=== PATIENT | female | born 1990 | race African-American/Black ===

== ENCOUNTER 2016-09-15 20:23 | Emergency (ER) | payer MEDICAID ==
[2016-09-15 20:42] VITALS: BP 129/76
[2016-09-15] MEDS ORDERED: OXYCODONE-ACETAMINOPHEN 5-325 MG TABLET PO ONE (20:42)
[2016-09-15] MEDS ORDERED: HYDROCODONE/ACETAMINOPHEN 5-325 MG 6 TAB/DSPK PO PRN (20:42)
--- NOTE | 2016-09-15 20:42 | ER Document Report ---
ED Oral Problem - General Stated Complaint: TOOTH PAIN Time Seen by Provider: 09/15/16 20:38 Mode of Arrival: Ambulatory Information source: Patient TRAVEL OUTSIDE OF THE U.S. IN LAST 30 DAYS: No - HPI Patient complains to provider of: Toothache Onset: This morning Onset: Sudden Quality of pain: Achy Severity: Moderate Pain Level: 4 Context: Fractured tooth Associated symptoms: Dental decay Worsened by: Cold Relieved by: Nothing Recently seen / treated by doctor/dentist: No Notes: 25-year-old female presents to the emergency room complaining of dental pain that started earlier today, she reports a fractured tooth in the area of concern that another small piece broke off of a few days ago, and throughout the day today she has had worsening pain to this area, she denies any drainage, no fevers, she does not currently have a dentist - Related Data Allergies/Adverse Reactions: No Known Allergies Allergy (Verified 01/24/16 12:35) Past Medical History - General Information source: Patient - Social History Smoking Status: Current Every Day Smoker Family History: Reviewed & Not Pertinent Infectious Medical History: Denies: Hx HIV Past Surgical History: Reports: Hx Section, Hx Gynecologic Surgery - c- section - Immunizations Hx Diphtheria, Pertussis, Tetanus Vaccination: Yes Review of Systems - Review of Systems Constitutional: No symptoms reported EENT: See HPI Cardiovascular: No symptoms reported Respiratory: No symptoms reported Gastrointestinal: No symptoms reported Genitourinary: No symptoms reported Female Genitourinary: No symptoms reported Musculoskeletal: No symptoms reported Skin: No symptoms reported Hematologic/Lymphatic: No symptoms reported Neurological/Psychological: No symptoms reported -: Yes All other systems reviewed and negative Physical Exam - Vital signs Vitals: Temp Pulse Resp BP Pulse Ox 98.6 F 79 16 129/76 H 100 09/15/16 20:40 09/15/16 20:40 09/15/16 20:40 09/15/16 20:40 09/15/16 20:40 - Notes Notes: - General General appearance: Appears well, Alert In distress: None - HEENT Head: Normocephalic, Atraumatic Eyes: Normal Conjunctiva: Normal Extraocular movements intact: Yes Eyelashes: Normal Pupils: PERRL - Respiratory Respiratory status: No respiratory distress - Cardiovascular Rhythm: Regular - Abdominal Inspection: Normal - Back Back: Normal - Extremities General upper extremity: Normal inspection General lower extremity: Normal inspection - Neurological Neuro grossly intact: Yes Orientation: AAOx4 [place] Coma Scale Eye Opening: Spontaneous Marcelo Coma Scale Verbal: Oriented [place] Coma Scale Motor: Obeys Commands Marcelo Coma Scale Total: 15 - Psychological Associated symptoms: Normal affect, Normal mood - Skin Skin Temperature: Warm Skin Moisture: Dry Skin Color: Normal - HEENT Mouth/Lips: Caries Teeth diagram: 1 - fractured tooth with dental caries, pulp exposure Course - Re-evaluation Re-evalutation: 09/15/16 20:44 Patient with dental fracture and caries, slight erythema and swelling to surrounding gingiva, will be started on antibiotics and provided with pain medication as well as information for follow-up with dental clinics, advised to return if symptoms worsen, patient acknowledges understanding and agreement with this plan - Vital Signs Vital signs: Temp Pulse Resp BP Pulse Ox 98.6 F 79 16 129/76 H 100 09/15/16 20:40 09/15/16 20:40 09/15/16 20:40 09/15/16 20:40 09/15/16 20:40 Discharge - Discharge Clinical Impression: Dental caries, unspecified Condition: Stable Disposition: HOME, SELF-CARE Instructions: Dentist, Dental Infection or Abscess ([facility]) Additional Instructions: Follow up with your primary care provider and a dentist in one to 2 days. Return to the emergency room immediately if symptoms worsen or any additional concerns. Prescriptions: Oxycodone HCl/Acetaminophen [Percocet 5-325 mg Tablet] 1 - 2 tab PO ASDIR PRN # 15 tablet PRN Reason: Penicillin V Potassium [Penicillin Vk 500 mg Tablet] 500 mg PO TID #30 tablet
== END 2016-09-15 21:00 | disposition home or self-care (01) ==
LOC: ER 20:23
DX: K02.9 Dental caries, unspecified (principal); K08.89 Other specified disorders of teeth and supporting structures; F17.200 Nicotine dependence, unspecified, uncomplicated
CPT/HCPCS: 99282

== ENCOUNTER 2017-04-18 09:13 | Emergency (ER) | payer SELFPAY ==
[2017-04-18] MEDS ORDERED: IBUPROFEN 800 MG TABLET PO ONE (10:39)
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
[2017-04-18] MEDS ORDERED: TETRACAINE HCL 0.5% OPH SOLN 2 ML OS ONE (12:19)
[2017-04-18] MEDS ORDERED: TETRACAINE HCL 0.5% OPH SOLN 2 ML ONE (12:20)
--- NOTE | 2017-04-18 12:23 | RADIOLOGY REPORT (SQ) ---
EXAM DESCRIPTION: HAND RIGHT 3 VIEWS COMPLETED DATE/TIME: 04/18/2017 11:36 am REASON FOR STUDY: PAINFUL THUMB. COMPARISON: None. EXAM PARAMETERS: NUMBER OF VIEWS: Three views. TECHNIQUE: AP, lateral and oblique radiographic images acquired of the right hand. LIMITATIONS: None. FINDINGS: MINERALIZATION: Normal. BONES: No acute fracture or dislocation. No worrisome bone lesions. JOINTS: No effusions. SOFT TISSUES: No soft tissue swelling. No foreign body. OTHER: No other significant finding. IMPRESSION: NEGATIVE STUDY OF THE RIGHT HAND. NO RADIOGRAPHIC EVIDENCE OF ACUTE INJURY. TECHNICAL DOCUMENTATION: JOB ID: [id number] SC-69 2010 [employer]- All Rights Reserved
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
[2017-04-18] MEDS ORDERED: CEPHALEXIN 500 MG CAPSULE PO ONE (12:35)
[2017-04-18] MEDS ORDERED: HYDROCODONE/ACETAMINOPHEN 5-325 MG (6 TAB/ER DISP) PO PRN (12:35)
[2017-04-18 12:53] VITALS: BP 135/86
== END 2017-04-18 12:51 | disposition home or self-care (01) ==
LOC: ER 09:13
DX: S00.83XA Contusion of other part of head, initial encounter (principal); J01.90 Acute sinusitis, unspecified; K02.9 Dental caries, unspecified; R51 Headache; F17.210 Nicotine dependence, cigarettes, uncomplicated; Y04.2XXA Assault by strike against or bumped into by another person, initial encounter; Y92.009 Unspecified place in unspecified non-institutional (private) residence as the place of occurrence of the external cause
CPT/HCPCS: 70486; 99284; 99406

== ENCOUNTER 2018-03-27 16:20 | Emergency (ER) | payer OTHER ==
[2018-03-27] MEDS ORDERED: IBUPROFEN 800 MG TABLET PO ONE (16:41)
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
[2018-03-27 17:55] LABS: AMORPHOUS SEDIMENT,URINE TRACE /HPF; APPEARANCE,URINE CLOUDY; BILIRUBIN,URINE NEGATIVE (NEGATIVE); COLOR,URINE YELLOW; GLUCOSE, URINE NEGATIVE (NEGATIVE); KETONES,URINE NEGATIVE (NEGATIVE); LEUKOCYTE ESTERASE,URINE NEGATIVE (NEGATIVE); NITRITE,URINE NEGATIVE (NEGATIVE); PROTEIN,URINE NEGATIVE (NEGATIVE); URINE SPECIFIC GRAVITY 1.027
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
[2018-03-27] MEDS ORDERED: CYCLOBENZAPRINE HCL 10 MG TABLET PO ONE (18:49)
[2018-03-27] MEDS ORDERED: OXYCODONE-ACETAMINOPHEN 5-325 MG TABLET PO ONE (18:50)
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
[2018-03-27 19:19] VITALS: BP 127/88
== END 2018-03-27 19:22 | disposition home or self-care (01) ==
LOC: ER 16:20
DX: S16.1XXA Strain of muscle, fascia and tendon at neck level, initial encounter (principal); S40.019A Contusion of unspecified shoulder, initial encounter; M79.89 Other specified soft tissue disorders; F17.200 Nicotine dependence, unspecified, uncomplicated; V48.5XXA Car driver injured in noncollision transport accident in traffic accident, initial encounter
CPT/HCPCS: 71046; 72040; 81001; 81025; 99284

== ENCOUNTER 2019-06-20 10:54 | Emergency (ER) | payer SELFPAY ==
[2019-06-20 11:47] VITALS: BP 145/80
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
[2019-06-20] MEDS ORDERED: IBUPROFEN 600 MG TABLET PO ONE (12:02)
[2019-06-20] MEDS ORDERED: ACETAMINOPHEN 325 MG TABLET PO ONE (12:02)
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
== END 2019-06-20 14:39 | disposition home or self-care (01) ==
LOC: ER 10:54
DX: S00.83XA Contusion of other part of head, initial encounter (principal); S40.022A Contusion of left upper arm, initial encounter; M79.602 Pain in left arm; M25.512 Pain in left shoulder; M25.522 Pain in left elbow; R51 Headache; Y04.0XXA Assault by unarmed brawl or fight, initial encounter; F17.210 Nicotine dependence, cigarettes, uncomplicated
CPT/HCPCS: 70450; 70491; 99284

== ENCOUNTER 2019-07-06 12:10 | Emergency (ER) | payer SELFPAY ==
[2019-07-06] MEDS ORDERED: HYDROCODONE/ACETAMINOPHEN 5-325 MG TABLET PO ONE (12:18)
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
--- NOTE | 2019-07-06 12:59 | RADIOLOGY REPORT (SQ) ---
EXAM DESCRIPTION: CT HEAD WITHOUT IMAGES COMPLETED DATE/TIME: 07/06/2019 12:44 pm REASON FOR STUDY: vision loss right eye COMPARISON: None. TECHNIQUE: Axial images acquired through the brain without intravenous contrast. Images reviewed wi th bone, brain and subdural windows. Additional sagittal and coronal reconstructions were generated. Images stored on PACS. All CT scanners at this facility use dose modulation, iterative reconstruction, and/or weight based d osing when appropriate to reduce radiation dose to as low as reasonably achievable (ALARA). [facility]: Dose Right [facility]: CareDose [facility]: Dose Right [facility]: Teradose 4D [facility]: ZeroPercent.us RADIATION DOSE: CT Rad equipment meets quality standard of care and radiation dose reduction techniq ues were employed. CTDIvol: 53.2 mGy. DLP: 937 mGy-cm. mGy. LIMITATIONS: None. FINDINGS: VENTRICLES: Normal size and contour. CEREBRUM: No masses. No hemorrhage. No midline shift. No evidence for acute infarction. Normal gra y/white matter differentiation. No areas of low density in the white matter. CEREBELLUM: No masses. No hemorrhage. No alteration of density. No evidence for acute infarction. EXTRAAXIAL SPACES: No fluid collections. No masses. ORBITS AND GLOBE: No intra- or extraconal masses. Normal contour of globe without masses. Dysconjug ate gaze. CALVARIUM: No fracture. PARANASAL SINUSES: No fluid or mucosal thickening. SOFT TISSUES: No mass or hematoma. OTHER: No other significant finding. IMPRESSION: Dysconjugate gaze appreciated. No other evidence of acute intracranial process. EVIDENCE OF ACUTE STROKE: NO. COMMENT: Pertinent positive or negative findings of the imaging study reported as a CRITICAL EXAM t o CRISTAL MONTIEL MD at12:47 on 07/06/2019. Category of Critical Exam: Negative code stroke Quality ID # [id number]: Final reports with documentation of one or more dose reduction techniques (e.g., Au tomated exposure control, adjustment of the mA and/or kV according to patient size, use of iterative reconstruction technique) TECHNICAL DOCUMENTATION: JOB ID: [id number] 2010 [employer]- All Rights Reserved Reading location - IP/workstation name: [email or web address]
[2019-07-06 14:01] VITALS: BP 145/85
== END 2019-07-06 13:59 | disposition home or self-care (01) ==
LOC: ER 12:10
DX: H54.61 Unqualified visual loss, right eye, normal vision left eye (principal); S09.90XA Unspecified injury of head, initial encounter; Y04.0XXA Assault by unarmed brawl or fight, initial encounter; F17.200 Nicotine dependence, unspecified, uncomplicated
CPT/HCPCS: 70450; 99283

== ENCOUNTER 2020-03-02 09:29 | Emergency (ER) | payer SELFPAY ==
[2020-03-02 09:38] VITALS: BP 136/89
== END 2020-03-02 09:55 | disposition left against medical advice (07) ==
LOC: ER 09:29
DX: Z53.21 Procedure and treatment not carried out due to patient leaving prior to being seen by health care provider (principal)

== ENCOUNTER 2020-03-02 11:40 | Emergency (ER) | payer SELFPAY ==
[2020-03-02 12:19] VITALS: BP 129/94
--- NOTE | 2020-03-02 13:19 | ER Document Report ---
ED Medical Screen (RME) - General Chief Complaint: Cough Stated Complaint: COUGH,FEVER,SINUS DRAINAGE Time Seen by Provider: 03/02/20 13:17 Mode of Arrival: Ambulatory Information source: Patient Notes: 29-year-old female presented to ED for cough cold congestion shortness of breath sore throat since yesterday. She does smoke a pack a day drinks alcohol 3 times a week and does not use any illicit drugs. Patient is alert oriented respirations regular nonlabored at this time speaking in full sentences. I have greeted and performed a rapid initial assessment of this patient. A comp rehensive ED assessment and evaluation of the patient, analysis of test results and completion of medical decision making process will be conducted by an additional ED providers. TRAVEL OUTSIDE OF THE [place] IN LAST 30 DAYS: No - Related Data Allergies/Adverse Reactions: No Known Allergies Allergy (Verified 03/02/20 09:50) Past Medical History - Social History Chew tobacco use (# tins/day): No Frequency of alcohol use: Social Drug Abuse: None Renal/ Medical History: Denies: Hx Peritoneal Dialysis Infectious Medical History: Denies: Hx HIV Past Surgical History: Reports: Hx Section, Hx Gynecologic Surgery - c- section - Immunizations Hx Diphtheria, Pertussis, Tetanus Vaccination: Yes Physical Exam - Vital signs Vitals: Temp Pulse Resp BP Pulse Ox 97.9 F 89 22 H 129/94 H 97 03/02/20 12:19 03/02/20 12:19 03/02/20 12:19 03/02/20 12:19 03/02/20 12:19 Course - Vital Signs Vital signs: Temp Pulse Resp BP Pulse Ox 97.9 F 89 22 H 129/94 H 97 03/02/20 12:19 03/02/20 12:19 03/02/20 12:19 03/02/20 12:19 03/02/20 12:19
--- NOTE | 2020-03-02 15:43 | RADIOLOGY REPORT (SQ) ---
EXAM DESCRIPTION: CHEST SINGLE VIEW IMAGES COMPLETED DATE/TIME: 03/02/2020 3:33 pm REASON FOR STUDY: Cough congestion short of breath COMPARISON: 03/27/2018 EXAM PARAMETERS: NUMBER OF VIEWS: One view. TECHNIQUE: Single frontal radiographic view of the chest acquired. RADIATION DOSE: NA LIMITATIONS: None. FINDINGS: LUNGS AND PLEURA: Minimal parenchymal opacity in the right upper lobe. Left lung is clear . MEDIASTINUM AND HILAR STRUCTURES: No masses. Contour normal. HEART AND VASCULAR STRUCTURES: Heart normal in size. Normal vasculature. BONES: No acute findings. HARDWARE: None in the chest. OTHER: No other significant finding. IMPRESSION: Minimal parenchymal opacity in the right upper lobe. TECHNICAL DOCUMENTATION: JOB ID: [id number] 2010 [employer]- All Rights Reserved Reading location - IP/workstation name: [email or web address]
[2020-03-02 16:53] LABS: ABSOLUTE EOSINOPHILS # (AUTO) 0.2 10^3/uL (0.0-0.6); ABSOLUTE LYMPHOCYTES (AUTO) 1.1 10^3/uL (0.5-4.7); ABSOLUTE MONOCYTES (AUTO) 0.6 10^3/uL (0.1-1.4); ABSOLUTE NEUT (AUTO) 4.1 10^3/uL (1.7-8.2); BASOPHILS % (AUTO) 0.2 % (0-2); EOSINOPHILS % (AUTO) 3.4 % (0-6); HEMATOCRIT 37.7 % (36.0-47.0); HEMOGLOBIN 12.1 g/dL (12.0-15.5); MEAN CORPUSCULAR HEMOGLOBIN 25.3 pg (27.0-33.4); MEAN CORPUSCULAR HGB CONC 32.1 g/dL (32.0-36.0); MEAN CORPUSCULAR VOLUME 79 fl (80-97); MONOCYTES % (AUTO) 9.6 % (3-13); PLATELET COUNT 341 10^3/uL (150-450); RED BLOOD COUNT 4.78 10^6/uL (3.72-5.28); RED CELL DISTRIBUTION WIDTH 16.1 % (11.5-14.0); SEGMENTED NEUTROPHILS % (AUTO) 68.8 % (42-78); TOTAL CELLS COUNTED % (AUTO) 100 %; WHITE BLOOD COUNT 5.9 10^3/uL (4.0-10.5)
--- NOTE | 2020-03-02 16:55 | ER Document Report ---
ED General - General Chief Complaint: Cough Stated Complaint: COUGH,FEVER,SINUS DRAINAGE Time Seen by Provider: 03/02/20 13:17 Mode of Arrival: Ambulatory Notes: Patient presents to the ER for evaluation of dry cough with chest congestion, fever, fatigue, sore throat, shortness of breath x2 days. The patient denies v omiting. She denies diarrhea. She denies abdominal pain. She denies low back pain or dysuria. She denies chest pain. She has had no known COVID-19 exposures. Nursing notes reviewed and past medical, social, and family histories reviewed and validated. TRAVEL OUTSIDE OF THE [place] IN LAST 30 DAYS: No - Related Data Allergies/Adverse Reactions: No Known Allergies Allergy (Verified 03/02/20 09:50) Past Medical History - General Information source: Patient - Social History Smoking Status: Current Every Day Smoker Cigarette use (# per day): Yes - 20 Chew tobacco use (# tins/day): No Smoking Education Provided: Yes Frequency of alcohol use: Social Drug Abuse: None Lives with: Family Family History: Reviewed & Not Pertinent Patient has homicidal ideation: No - Past Medical History Cardiac Medical History: Reports: None Pulmonary Medical History: Reports: None EENT Medical History: Reports: None Neurological Medical History: Reports: None Endocrine Medical History: Reports: None Renal/ Medical History: Reports: None. Denies: Hx Peritoneal Dialysis Malignancy Medical History: Reports: None Musculoskeletal Medical History: Reports None Skin Medical History: Reports None Psychiatric Medical History: Reports: None Traumatic Medical History: Reports: None Infectious Medical History: Reports: None. Denies: Hx HIV Past Surgical History: Reports: Hx Section, Hx Gynecologic Surgery - c- section - Immunizations Immunizations up to date: Yes Hx Diphtheria, Pertussis, Tetanus Vaccination: Yes Review of Systems - Review of Systems Notes: Constitutional: Positive for fever. HENT: Positive for sore throat. Eyes: Negative for visual changes. Cardiovascular: Negative for chest pain. Respiratory: Positive for cough and shortness of breath. Gastrointestinal: Negative for abdominal pain, vomiting or diarrhea. Genitourinary: Negative for dysuria. Musculoskeletal: Negative for back pain. Skin: Negative for rash. Neurological: Negative for headaches, weakness or numbness. 10 point ROS negative except as marked above and in HPI. Physical Exam - Vital signs Vitals: Temp Pulse Resp BP Pulse Ox 97.9 F 89 22 H 129/94 H 97 03/02/20 12:19 03/02/20 12:19 03/02/20 12:19 03/02/20 12:19 03/02/20 12:19 - Notes Notes: CONSTITUTIONAL: Well appearing. No acute distress. SKIN: Warm, dry, and intact without rash EYES: Extraocular movements are grossly intact, clear conjunctiva HENT: Normocephalic, atraumatic, moist mucus membranes NECK: No obvious swelling, normal range of motion PULMONARY: Normal chest rise and fall. Mild scattered wheezes noted bilaterally. No respiratory distress or stridor CARDIOVASCULAR: Regular rate. No murmurs, rubs, gallops. Distal extremities are warm and well perfused. ABDOMINAL: Soft, nontender NEUROLOGIC: Normal speech, moves all extremities. MUSCULOSKELETAL: No gross deformities, atraumatic PSYCHIATRIC: Normal mood and affect Course - Re-evaluation Re-evalutation: 03/02/20 18:00 The patient left AGAINST MEDICAL ADVICE while I was in another room. The nurse did attempt to get her to stay to allow me to discuss with her the results. The patient told the nurse she was tired of waiting and would not stay. She does have a right upper lobe pneumonia. I called her and spoke with her on the phone about her results. She will bead picker her prescriptions from [facility] in [place] and agrees to return for her written discharge instructions. - Vital Signs Vital signs: Temp Pulse Resp BP Pulse Ox 97.9 F 89 22 H 129/94 H 97 03/02/20 12:19 03/02/20 12:19 03/02/20 12:19 03/02/20 12:19 03/02/20 12:19 - Laboratory Result Diagrams: 03/02/20 16:30 03/02/20 16:30 Laboratory results interpreted by me: 03/02/20 16:30 MCV 79 L MCH 25.3 L RDW 16.1 H - Diagnostic Test Radiology reviewed: Reports reviewed Discharge - Discharge Clinical Impression: Right upper lobe pneumonia Qualifiers: Pneumonia type: due to unspecified organism Qualified Code(s): J18.9 - Pneumonia, unspecified organism Disposition: AGAINST MEDICAL ADVICE Instructions: COVID-19 Guidance for Persons Under Investigation, Pneumonia ([facility]) Prescriptions: Guaifenesin/Codeine Phos [Robitussin-AC Syrup 59 ml] 10 ml PO QIDP PRN #100 ml PRN Reason: Cough Azithromycin [Zithromax 250 mg Tablet] 250 mg PO ASDIR PRN #6 tablet PRN Reason:
[2020-03-02 17:12] LABS: ALBUMIN 4.4 g/dL (3.5-5.0); ALKALINE PHOSPHATASE 66 U/L (38-126); ANION GAP 7 (5-19); ASPARTATE AMINO TRANSFERASE 21 U/L (14-36); BILIRUBIN,DIRECT 0.1 mg/dL (0.0-0.4); BILIRUBIN,TOTAL 0.4 mg/dL (0.2-1.3); BLOOD UREA NITROGEN 7 mg/dL (7-20); CALCIUM 9.3 mg/dL (8.4-10.2); CARBON DIOXIDE 28 mmol/L (22-30); CHLORIDE 104 mmol/L (98-107); GLUCOSE 92 mg/dL (75-110); POTASSIUM 3.9 mmol/L (3.6-5.0); TOTAL PROTEIN 7.7 g/dL (6.3-8.2)
[2020-03-02 17:43] LABS: A TYPE INFLUENZA AG NEGATIVE (NEGATIVE); B INFLUENZA AG NEGATIVE (NEGATIVE)
== END 2020-03-02 17:50 | disposition left against medical advice (07) ==
LOC: ER 11:40
DX: R05 Cough (principal); J18.9 Pneumonia, unspecified organism; R09.89 Other specified symptoms and signs involving the circulatory and respiratory systems; R50.9 Fever, unspecified; R53.83 Other fatigue; J02.9 Acute pharyngitis, unspecified; R06.02 Shortness of breath; R06.2 Wheezing; F17.210 Nicotine dependence, cigarettes, uncomplicated; Z53.29 Procedure and treatment not carried out because of patient's decision for other reasons; Z20.828 Contact with and (suspected) exposure to other viral communicable diseases
CPT/HCPCS: 99284; 36415; 87070; 87880; 84703; 85025; 87635; 80053; 87804; 71045; C9803